=== PATIENT | male | born 1950 | race Caucasian/White ===

== ENCOUNTER 2018-02-24 00:14 | Emergency (ER) | payer OTHER ==
[~2018-02-24] VITALS: Ht 167.6 cm; Wt 79.5 kg
[2018-02-24 00:24] VITALS: BP 130/67; PULSE 64; RESP 18; TEMP 98.7; O2SAT 98
[2018-02-24] MEDS ORDERED: ASPI-516 CHEW (01:22)
[2018-02-24] MEDS ORDERED: METF500T PO (01:22)
[2018-02-24] MEDS ORDERED: DHEA50TA PO (01:25)
[2018-02-24] MEDS ORDERED: OCUVTAB PO (01:25)
[2018-02-24] MEDS ORDERED: OMEG100046 PO (01:25)
[2018-02-24] MEDS ORDERED: VITA1000 PO (01:25)
[2018-02-24] MEDS ORDERED: DHEA50TA (01:25)
[2018-02-24] MEDS ORDERED: MULT1TAB46 PO (01:25)
[2018-02-24] MEDS ORDERED: ATOR10TA15 PO (01:25)
[2018-02-24] MEDS ORDERED: ACETAMINOPHEN 500 MG CPLT PO ONE (01:45)
--- NOTE | 2018-02-24 02:37 | RADRPT ---
EXAM DATE: 02/24/2018 2:21 AM EDT AGE/SEX: 67 years / Male INDICATIONS: Trauma; fall. CLINICAL DATA: This is the patient's initial encounter. Patient reports that signs and symptoms have been present for 1 day and indicates a pain score of 5/10. MEDICAL/SURGICAL HISTORY: Diabetes. None. RADIATION DOSE: 56.35 CTDI (mGy) COMPARISON: No prior exams available for comparison. TECHNIQUE: CT of the head without contrast. Using automated exposure control and adjustment of the mA and/or kV according to patient size, radiation dose was kept as low as reasonably achievable to ob tain optimal diagnostic quality images. FINDINGS: Cerebrum: The ventricles are normal for age. No evidence of midline shift, mass lesion, hemorrhage or acute infarction. No extraaxial fluid collections are seen. Posterior Fossa: The cerebellum and brainstem are intact. The 4th ventricle is midline. The cerebe llopontine angle is unremarkable. Extracranial: The visualized portion of the orbits is intact. Skull: The calvaria is intact. No evidence of skull fracture. CONCLUSION: 1. No acute intracranial abnormality. Electronically signed by: Kory Nicholson MD 02/24/2018 2:36 AM EDT
--- NOTE | 2018-02-24 03:36 | PD ---
HPI Chief Complaint: Fall Time Seen by Provider: 01:36 Travel History International Travel<30 days: No Contact w/Intl Traveler<30days: No Traveled to known affect area: No History of Present Illness HPI 67-year-old male with chief complaint of abrasions status post mechanical fall. Patient states that he was walking and tripped over uneven pavement striking his knees. He is also complaining of a small laceration over his left brow from his eyeglasses. His biggest complaint is his left pectoralis muscle and and left ribs. No LOC. Patient normally ambulates without difficulty. PFSH Past Medical History Diabetes: Yes Patient Takes Glucophage: Yes (METFORMIN ) Diminished Hearing: No Past Surgical History Other Surgery: Yes (R. TOE SX ) Social History Alcohol Use: Yes (RARE) Tobacco Use: No Substance Use: No Allergies-Medications (Allergen,Severity, Reaction): Coded Allergies: No Known Allergies (Unverified , 02/24/18) Reported Meds & Prescriptions Reported Meds & Active Scripts Active Percocet (Oxycodone-Acetaminophen) 5-325 mg Tab 1 Tab PO Q8HR PRN Reported Fish Oil 1,000 mg Softgel (Osyka-3/Dha/Epa/Fish Oil) 1,000 Mg (120 Mg-180 Mg) Capsule 1,000 Mg PO Ocuvite (Multiple Vitamins W/ Minerals) 1 Tab 1 Tab PO DAILY Vitamin D-1000 (Cholecalciferol) 1,000 Unit Tab 5,000 Units PO DAILY Multi Vitamin Daily (Multiple Vitamin) 1 Tab Tab PO DAILY Dhea (Prasterone (DHEA)) 50 Mg Tab PO DAILY Dhea (Prasterone (DHEA)) 50 Mg Tab Atorvastatin (Atorvastatin Calcium) 10 Mg Tab Mg PO HS Metformin (Metformin HCl) 500 Mg Tab 500 Mg PO BID Aspirin 81 Mg Chew 81 Mg CHEW DAILY Physical Exam Narrative GENERAL: Well-nourished, well-developed patient. SKIN: Warm and dry. small non-suturable laceration to left brow HEAD: Normocephalic. EYES: No scleral icterus. No injection or drainage. NECK: Supple, trachea midline. No JVD or lymphadenopathy. CARDIOVASCULAR: Regular rate and rhythm without murmurs, gallops, or rubs. CHEST WALL: tender along left lateral rubs RESPIRATORY: Breath sounds equal bilaterally. No accessory muscle use. GASTROINTESTINAL: Abdomen soft, non-tender, nondistended. MUSCULOSKELETAL: No cyanosis, or edema. minor abrasions to bilateral knees BACK: Nontender without obvious deformity. No CVA tenderness. Data Data Last Documented VS Vital Signs Date Time Temp Pulse Resp B/P (MAP) Pulse Ox O2 Delivery O2 Flow Rate FiO2 02/24/18 08:08 02/24/18 00:24 98.7 64 18 98 Orders Orders Acetaminophen (Tylenol) (02/24/18 01:45) Ct Brain W/O Iv Contrast(Rout) (02/24/18 ) Tetanus/Diphtheria Tox Adult (Tetanus/Di (02/24/18 03:45) Chest, Pa & Lat (02/24/18 ) Ribs, Uni (W/Exp Cxr-Min 3vw) (02/24/18 ) Ed Discharge Order (02/24/18 07:33) MDM Medical Decision Making Medical Screen Exam Complete: Yes Emergency Medical Condition: Yes Differential Diagnosis fall, rib fracture, ICH Narrative Course Patient is 67-year-old male who presented status post fall patient was complaining of rib pain. He did strike his head he does take aspirin daily. Head CT was negative for acute findings Chest x-ray and rib series revealed no fracture no pneumothorax Patient was given a prescription for analgesic medication and discharged home. Diagnosis Primary Impression: Fall Qualified Codes: W19.XXXA - Unspecified fall, initial encounter Additional Impressions: Rib contusion Qualified Codes: S20.212A - Contusion of left front wall of thorax, initial encounter Multiple abrasions Laceration Med/Other Pt SpecificInfo: Prescription(s) given Scripts Oxycodone-Acetaminophen (Percocet) 5-325 mg Tab 1 TAB PO Q8HR Y for PAIN, #12 TAB 0 Refills Prov: Armen Blanchard DO 02/24/18 Disposition: 01 DISCHARGE HOME Condition: Good Armen Blanchard DO Feb 24, 2018 03:36
[2018-02-24] MEDS ORDERED: TETANUS/DIPHTHERIA TOXOID ADULT 0.5 ML VIAL IM ONE (03:45)
--- NOTE | 2018-02-24 05:03 | RADRPT ---
EXAM DATE: 02/24/2018 4:08 AM EDT AGE/SEX: 67 years / Male INDICATIONS: Chest pain and fall. CLINICAL DATA: This is the patient's initial encounter. Patient reports that signs and symptoms have been present for 1 day and indicates a pain score of 7/10. MEDICAL/SURGICAL HISTORY: Diabetes mellitus type II. . Right foot, 5th digit. COMPARISON: No prior exams available for comparison. FINDINGS: PA and lateral views of the chest demonstrate the lungs to be symmetrically aerated without evidence of mass, infiltrate or effusion. The cardiomediastinal contours are unremarkable. Osseous structures are intact. CONCLUSION: No acute cardiopulmonary disease Electronically signed by: Kory Nicholson MD 02/24/2018 5:02 AM EDT
--- NOTE | 2018-02-24 05:05 | RADRPT ---
EXAM DATE: 02/24/2018 4:06 AM EDT AGE/SEX: 67 years / Male INDICATIONS: Chest pain and fall. CLINICAL DATA: This is the patient's initial encounter. Patient reports that signs and symptoms have been present for 1 day and indicates a pain score of 7/10. MEDICAL/SURGICAL HISTORY: Diabetes mellitus type II. . Right foot, 5th digit. COMPARISON: No prior exams available for comparison. FINDINGS: There is no evidence of displaced fracture. No destructive lesions or areas of periosteal thickening are seen. Expiratory view of the chest is negative for pneumothorax. The mediastinal structures ar e midline. CONCLUSION: No left-sided rib fracture Electronically signed by: Kory Nicholson MD 02/24/2018 5:03 AM EDT
[2018-02-24] MEDS ORDERED: PERC5TAB12 PO (07:33)
== END 2018-02-24 08:09 | disposition home or self-care (01) ==
LOC: NEPC 00:14
DX: S01.81XA Laceration without foreign body of other part of head, initial encounter (principal); S20.212A Contusion of left front wall of thorax, initial encounter; E11.9 Type 2 diabetes mellitus without complications; Z23 Encounter for immunization; Z79.82 Long term (current) use of aspirin; Z79.899 Other long term (current) drug therapy; W01.0XXA Fall on same level from slipping, tripping and stumbling without subsequent striking against object, initial encounter
CPT/HCPCS: 70450; 71046; 71101; 90471; 90714